=== PATIENT | male | born 1965 | race Hispanic/Latino ===

== ENCOUNTER 2020-01-04 09:44 | Emergency (ER) | payer MEDICAID ==
[2020-01-04 10:08] VITALS: BP 122/79
--- NOTE | 2020-01-04 11:29 | Emergency Department Report ---
{null, - General Chief complaint: Medical Clearance Stated complaint: BED BUG BITES Time Seen by Provider: 01/04/20 11:22 Source: patient Mode of arrival: Ambulatory Limitations: No Limitations - History of Present Illness Initial comments: pt is a 54 yo male who presents to the ED with c/o "bed bug bites." he states he is currently staying at [facility] and they wanted him to be evaluated in the emergency department. he states he has been constantly scratching. he denies any fever, chills, drainage, n/v/d, or any other sx. he denies any allergies to to meds. - Related Data Previous Rx's Medication Instructions Recorded Last Taken Type Permethrin 5% [Acticin 5% CREAM] 1 applicatio TP ONCE #1 tube 01/04/20 Unknown Rx diphenhydrAMINE [Benadryl CAP] 50 mg PO Q8HR PRN #14 capsule 01/04/20 Unknown Rx Allergies Allergy/AdvReac Type Severity Reaction Status Date / Time No Known Allergies Allergy Unverified 01/04/20 10:05 Abscess Boil HPI - HPI Chief Complaint: Medical Clearance Stated Complaint: BED BUG BITES Time Seen by Provider: 01/04/20 11:22 Home Medications: Previous Rx's Medication Instructions Recorded Last Taken Type Permethrin 5% [Acticin 5% CREAM] 1 applicatio TP ONCE #1 tube 01/04/20 Unknown Rx diphenhydrAMINE [Benadryl CAP] 50 mg PO Q8HR PRN #14 capsule 01/04/20 Unknown Rx Allergies/Adverse Reactions: Allergies Allergy/AdvReac Type Severity Reaction Status Date / Time No Known Allergies Allergy Unverified 01/04/20 10:05 ED Review of Systems ROS: Stated complaint: BED BUG BITES Other details as noted in HPI Comment: All other systems reviewed and negative ED Past Medical Hx - Past Medical History Previous Medical History?: No - Surgical History Past Surgical History?: No - Social History Smoking Status: Current Every Day Smoker Substance Use Type: Alcohol - Medications Home Medications: Home Medications Medication Instructions Recorded Confirmed Last Taken Type Permethrin 5% [Acticin 5% CREAM] 1 applicatio TP ONCE #1 tube 01/04/20 Unknown Rx diphenhydrAMINE [Benadryl CAP] 50 mg PO Q8HR PRN #14 capsule 02/18/20 Unknown Rx ED Physical Exam - General Limitations: No Limitations General appearance: alert, in no apparent distress - Head Head exam: Present: atraumatic, normocephalic - Eye Eye exam: Present: normal appearance - ENT ENT exam: Present: mucous membranes moist - Respiratory Respiratory exam: Present: normal lung sounds bilaterally. Absent: respiratory distress, wheezes, rales, rhonchi, stridor, chest wall tenderness, accessory muscle use, decreased breath sounds, prolonged expiratory - Cardiovascular Cardiovascular Exam: Present: regular rate, normal rhythm, normal heart sounds. Absent: systolic murmur, diastolic murmur, rubs, gallop - Neurological Exam Neurological exam: Present: alert, oriented X3 - Psychiatric Psychiatric exam: Present: normal affect, normal mood - Skin Skin exam: Present: warm, dry, other (several areas of scabbing, several areas of healed scarring, small erythematous papules, no signs of infection, no drainage, no blisters, areas of excoriations secondary to scratching) ED Course Vital Signs 01/04/20 01/04/20 10:04 10:07 Temperature 97.8 F Pulse Rate 100 H 89 Respiratory 19 Rate Blood Pressure 122/79 O2 Sat by Pulse 97 Oximetry ED Medical Decision Making - Lab Data Vital Signs 01/04/20 01/04/20 10:04 10:07 Temperature 97.8 F Pulse Rate 100 H 89 Respiratory 19 Rate Blood Pressure 122/79 O2 Sat by Pulse 97 Oximetry - Medical Decision Making pt is a 54 yo male who presents to the ED with c/o "bed bug bites." he states he is currently staying at [facility] and they wanted him to be evaluated in the emergency department. he states he has been constantly scratching. he denies any fever, chills, drainage, n/v/d, or any other sx. he denies any allergies to to meds. vss. on exam: several areas of scabbing, several areas of healed scarring, small erythematous papules, no signs of infection, no drainage, no blisters, areas of excoriations secondary to scratching. examination consistent with scarring areas, areas of scratching, and a few papules which could be related to bed bugs or mosquito bite. does not appear to be scabies, no signs of infection. pt given prescription for permethrin cream and benadryl. advised pt to please use medication as prescribed. please stop scratching. follow up with a primary care doctor. return to the emergency room for any new or worsening symptoms. - Differential Diagnosis scabies, bed bugs, insect bite, contact derm, irritant derm, eczema Critical care attestation.: If time is entered above; I have spent that time in minutes in the direct care of this critically ill patient, excluding procedure time. ED Disposition Clinical Impression: Bed bug bite Qualifiers: Encounter type: initial encounter Qualified Code(s): W57.XXXA - Bitten or stung by nonvenomous insect and other nonvenomous arthropods, initial encounter Disposition: TO HOME OR SELFCARE Is pt being admited?: No Does the pt Need Aspirin: No Condition: Stable Instructions: Insect Bite or Sting (ED) Additional Instructions: please use medication as prescribed. please stop scratching. follow up with a primary care doctor. return to the emergency room for any new or worsening symptoms. Prescriptions: Permethrin 5% [Acticin 5% CREAM] 1 applicatio TP ONCE #1 tube diphenhydrAMINE [Benadryl CAP] 50 mg PO Q8HR PRN #14 capsule PRN Reason: itching Referrals: JAMISON DODD MD [Staff Physician] - 2-3 Days [facility] [Outside] - 2-3 Days [facility] [Outside] - 2-3 Days Time of Disposition: 11:29 Print Language: KAZAKH }
== END 2020-01-04 12:00 | disposition home or self-care (01) ==
LOC: ED 09:44
DX: T14.8XXA Other injury of unspecified body region, initial encounter (principal); F17.200 Nicotine dependence, unspecified, uncomplicated; Z79.899 Other long term (current) drug therapy; W57.XXXA Bitten or stung by nonvenomous insect and other nonvenomous arthropods, initial encounter; Y93.89 Activity, other specified; Y92.89 Other specified places as the place of occurrence of the external cause; Y99.8 Other external cause status
CPT/HCPCS: 99281